=== PATIENT | male | born 1955 | race Two or more races ===

== ENCOUNTER 2016-12-28 05:52 | Emergency (ER) | payer BC, OTHER ==
[~2016-12-28] VITALS: Ht 162.6 cm; Wt 58.0 kg
[2016-12-28] MEDS ORDERED: TRAMADOL 50MG TABLET PO ONE (07:45)
[2016-12-28 08:41] VITALS: BP 139/77
== END 2016-12-28 09:16 | disposition home or self-care (01) ==
LOC: ER 05:52
DX: B02.21 Postherpetic geniculate ganglionitis (principal); Z88.6 Allergy status to analgesic agent; Z98.890 Other specified postprocedural states
CPT/HCPCS: 99283